=== PATIENT | male | born 1965 | race African-American/Black ===

== ENCOUNTER 2016-10-17 15:04 | Inpatient (IN) | payer OTHER ==
[2016-10-17 17:35] VITALS: BMI 35.2
--- NOTE | 2016-10-17 18:48 | HP ---
[id number] 4d 4-Moderate,w/Arms Extend Anxiety: 4-Mod. Anxious/Guarded Agitation: 4-Moderately Restless Paroxysmal Sweats: 1-Minimal Palms Moist Orientation: 1-Uncertain about Date Tacttile Disturbances: 0-None Auditory Disturbances: 0-None Visual Disturbances: 0-None Headache: 0-None Present CIWA-Ar Total Score: 15 Admission ROS S - HPI Chief Complaint: WITHDRAWAL SX Allergies/Adverse Reactions: Allergies Allergy/AdvReac Type Severity Reaction Status Date / Time shellfish derived Allergy Severe Difficulty Verified 10/17/16 18:01 Breathing No Known Drug Allergies Allergy Verified 10/17/16 18:01 formula with iron AdvReac Verified 10/17/16 18:50 [From Lactofree] infant formula, lactose-free AdvReac Verified 10/17/16 18:50 [From Lactofree] History of Present Illness: 51 YEARS OLD MALE WITH LONG HISTORY OF ALCOHOL DEPENDENCE, CHRONIC BACK PAIN, GERD, SEIZURE AND BIPOLAR II IS ADMITTED TO DETOX Exam Limitations: No Limitations - Ebola screening Have you traveled outside of the country in the last 21 days: No (N) Have you had contact with anyone from an Ebola affected area: No Have you been sick,other than usual withdrawal symptoms: No Do you have a fever: No - Review of Systems Constitutional: Chills, Changes in sleep, Weight Stable EENT: reports: Dental Problems (TEETH MISSING) Respiratory: reports: No Symptoms reported Cardiac: reports: No Symptoms Reported GI: reports: Nausea, Poor Fluid Intake, Indigestion, Abdominal cramping : reports: No Symptoms Reported Patient History - Patient Medical History Hx Anemia: No Hx Asthma: No Hx Chronic Obstructive Pulmonary Disease (COPD): No Hx Cancer: No Hx Cardiac Disorders: No Hx Congestive Heart Failure: No Hx Hypertension: No Hx Hypercholesterolemia: No Hx Pacemaker: No HX Cerebrovascular Accident: No Hx Seizures: Yes (Last seizure 2014.) Hx Dementia: No Hx Diabetes: Yes (Type II) Hx Gastrointestinal Disorders: Yes (acid reflux.) Hx Liver Disease: No Hx Genitourinary Disorders: No Hx Sexually Transmitted Disorders: No Hx Renal Disease (ESRD): No Hx Thyroid Disease: No Hx Human Immunodeficiency Virus (HIV): No Hx Hepatitis C: No Hx Depression: Yes Hx Suicide Attempt: No Hx Bipolar Disorder: No Hx Schizophrenia: No - Patient Surgical History Past Surgical History: Yes Hx Neurologic Surgery: No Hx Cataract Extraction: No Hx Cardiac Surgery: No Hx Lung Surgery: No Hx Breast Surgery: No Hx Breast Biopsy: No Hx Abdominal Surgery: No Hx Appendectomy: No Hx Cholecystectomy: No Hx Genitourinary Surgery: No Hx Orthopedic Surgery: Yes (R mandible fx) Anesthesia Reaction: No - PPD History Previous Implant?: Yes Documented Results: Negative w/o proof Implanted On Prior [facility] Admission?: No PPD to be Administered?: Yes - Smoking Cessation Smoking history: Current some day smoker Have you smoked in the past 12 months: No Aproximately how many cigarettes per day: 0 Cigars Per Day: 0 Hx Chewing Tobacco Use: No Initiated information on smoking cessation: No - Substance & Tx. History Hx Alcohol Use: Yes Hx Substance Use: Yes Substance Use Type: Alcohol Hx Substance Use Treatment: Yes - Substances Abused Alcohol Route: Oral Frequency: Daily Amount used: 2 PINTS VODKA Age of first use: 18 Date of Last Use: 10/17/16 Cocaine Route: Smoking Frequency: 1-2 times per week Amount used: $20 Age of first use: 30 Date of Last Use: 10/15/16 Family Disease History - Family Disease History Family Disease History: Heart Disease: Mother (), Other: Father (LIVER ) Admission Physical Exam S - Vital Signs Vital Signs: Vital Signs - 24 hr 10/17/16 17:29 Temperature 98.6 F Pulse Rate 95 H Respiratory 20 Rate Blood Pressure 122/81 - Physical General Appearance: Yes: Appropriately Dressed, Mild Distress, Obese, Tremorous , Irritable, Sweating, Anxious HEENTM: Yes: Hearing grossly Normal, Normal ENT Inspection, Normocephalic, Normal Voice Respiratory: Yes: Chest Non-Tender, Lungs Clear, Normal Breath Sounds, No Respiratory Distress, No Accessory Muscle Use Neck: Yes: Supple, Trachea in good position Breast: Yes: Breasts Symetrical Cardiology: Yes: Regular Rhythm, S1, S2, Tachycardia Abdominal: Yes: Non Tender, Soft Genitourinary: Yes: Within Normal Limits Back: Yes: Normal Inspection Musculoskeletal: Yes: full range of Motion, Gait Steady, Back pain, Muscle Pain (RIGHT KNEE) Extremities: Yes: Normal Range of Motion, Non-Tender, Tremors Neurological: Yes: Alert, Motor Strength 5/5, Normal Response, Depressed Affect Integumentary: Yes: Warm Lymphatic: Yes: Within Normal Limits - Diagnostic (1) Alcohol dependence with uncomplicated withdrawal Current Visit: Yes Status: Acute (2) Chronic back pain Current Visit: Yes Status: Chronic Qualifiers: Back pain location: low back pain Back pain laterality: bilateral Sciatica presence: without sciatica Qualified Code(s): M54.5 - Low back pain; G89.29 - Other chronic pain (3) GERD (gastroesophageal reflux disease) Current Visit: Yes Status: Chronic Qualifiers: Esophagitis presence: without esophagitis Qualified Code(s): K21.9 - Gastro-esophageal reflux disease without esophagitis (4) Injury of left middle finger Current Visit: Yes Status: Chronic Qualifiers: Encounter type: sequela Qualified Code(s): S69.92XS - Unspecified injury of left wrist, hand and finger(s), sequela (5) Diabetes mellitus type II, controlled Current Visit: Yes Status: Chronic Qualifiers: Diabetes mellitus complication status: without complication Diabetes mellitus buttermaker continuous churn insulin use: without buttermaker continuous churn use Qualified Code(s): E11.9 - Type 2 diabetes mellitus without complications (6) 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
[2016-10-17] MEDS ORDERED: MAGNESIUM CITRATE 300 ML BOTTLE PO PRN (18:57)
[2016-10-17] MEDS ORDERED: ACETAMINOPHEN 325 MG TABLET (FP) PO PRN (18:57)
[2016-10-17] MEDS ORDERED: chlordiazePOXIDE HCL 25 MG CAPSULE PO PRN (18:57)
[2016-10-17] MEDS ORDERED: LOPERAMIDE HCL 2 MG CAPSULE PO PRN (18:57)
[2016-10-17] MEDS ORDERED: P-EPHED 60MG/TRIPROLIDI 2.5MG TABLET PO PRN (18:57)
[2016-10-17] MEDS ORDERED: diphenhydrAMINE HCL 50 MG CAPSULE PO PRN (18:57)
[2016-10-17] MEDS ORDERED: MENTHOL/PHENOL 1 EACH UD MM PRN (18:57)
[2016-10-17] MEDS ORDERED: MAG HYDROX/AL HYDROX/SIMETH 30 ML UNIT-DOSE CUP PO PRN (18:57)
[2016-10-17] MEDS ORDERED: guaiFENesin/D-METHORPHAN HB 10 ML UNIT-DOSE CUPS PO PRN (18:57)
[2016-10-17] MEDS ORDERED: MAGNESIUM HYDROX 2400MG/30ML ORAL SUSPENSION 30 ML CUP PO PRN (18:57)
[2016-10-17] MEDS: THIAMINE HCL 100 MG TABLET (FP) PO SCH (22:44)
[2016-10-17] MEDS: RANITIDINE HCL 150 MG TABLET (FP) PO SCH (22:44)
[2016-10-17] MEDS: chlordiazePOXIDE HCL 25 MG CAPSULE PO SCH (22:44)
[2016-10-18] MEDS: chlordiazePOXIDE HCL 25 MG CAPSULE PO SCH ×4 (05:42→22:56)
[2016-10-18] MEDS: metFORMIN HCL 500 MG TABLET (FP) PO SCH ×2 (07:50→17:49)
[2016-10-18] MEDS: CYCLOBENZAPRINE HCL 10 MG TABLET (FP) PO PRN ×2 (08:07→22:56)
[2016-10-18] MEDS ORDERED: LIDOCAINE 5% TOPICAL PATCH TP ONE (08:59)
--- NOTE | 2016-10-18 09:32 | PN ---
S CIWA - CIWA Score Nausea/Vomitin Muscle Tremors: 3 Anxiety: 3 Agitation: 4-Moderately Restless Paroxysmal Sweats: 3 Orientation: 0-Oriented Tacttile Disturbances: 2-Mild Itch/Numbness/Burn Auditory Disturbances: 0-None Visual Disturbances: 0-None Headache: 0-None Present CIWA-Ar Total Score: 17 BHS Progress Note (SOAP) Subjective: interupted sleep, sweats, shakes, lbp, wants hsi pysch meds Objective: 10/18/16 09:28 Vital Signs Temperature 97.2 F L 10/18/16 06:00 Pulse Rate 91 H 10/18/16 06:00 Respiratory Rate 18 10/18/16 06:00 Blood Pressure 121/81 10/18/16 06:00 O2 Sat by Pulse Oximetry (%) Laboratory Tests 10/18/16 05:49 POC Glucometer 119 pending labs pt aox3 in nad ambulating , irritable Assessment: 10/18/16 09:30 withdrawal sx's anxious about pysch meds dm lbp Plan: cont detox increase fluids lidocaine patch/d flexeril 10mg tid/prn pysch eval. daily bgms
[2016-10-18 09:58] LABS: URINE APPEARANCE CLEAR; URINE BILIRUBIN NEGATIVE (NEGATIVE); URINE BLOOD NEGATIVE (NEGATIVE); URINE COLOR LTYELLOW; URINE GLUCOSE (UA) NEGATIVE (NEGATIVE); URINE KETONE NEGATIVE (NEGATIVE); URINE LEUK ESTERASE NEGATIVE (NEGATIVE); URINE NITRITE NEGATIVE (NEGATIVE); URINE PROTEIN NEGATIVE (NEGATIVE); URINE UROBILINOGEN NEGATIVE E.U./dl (0.2-1.0)
[2016-10-18 10:09] LABS: MCH 29.6 pg (25.7-33.7); MCHC 33.8 g/dl (32.0-35.9); MEAN CELL VOLUME 87.5 fl (80-96); MEAN PLT VOLUME 7.3 fl (7.5-11.1); PLATELET COUNT 259 K/MM3 (134-434); RDW 14.7 % (11.9-15.9); WHITE BLOOD COUNT 6.7 K/mm3 (4.0-10.0)
[2016-10-18 10:33] LABS: ALBUMIN 3.6 g/dl (3.4-5.0); ALK PHOS 50 U/L (45-117); ANION GAP 8 (8-16); BILIRUBIN,TOTAL 0.3 mg/dL (0.2-1.0); CALCIUM 8.7 mg/dL (8.5-10.1); CO2 27 mmol/L (21-32); COCKROFT - GAULT 135.04; CREATININE 0.9 mg/dL (0.7-1.3); GLUCOSE,RANDOM 99 mg/dL (74-106); SGOT/AST 19 U/L (15-37); SGPT/ALT 38 U/L (12-78); TOT PROT 6.5 g/dl (6.4-8.2)
--- NOTE | 2016-10-18 10:47 | CONSULT ---
[facility] Psychiatric Consult - Data Date of interview: 10/18/16 Admission source: [facility] Identifying data: Readmission to [facility] for this 51 y/o AA male seeking detox treatment for alcohol and cocaine dependence.Patient is single,a father of one,domiciled,unemployed and supported on SSI benefits. Substance Abuse History: - Smoking Cessation. Smoking history: Current some day smoker. Have you smoked in the past 12 months: No. Aproximately how many cigarettes per day: 0. Cigars Per Day: 0. Hx Chewing Tobacco Use: No. Initiated information on smoking cessation: No. - Substance & Tx. History. Hx Alcohol Use: Yes. Hx Substance Use: Yes. Substance Use Type: Alcohol. Hx Substance Use Treatment: Yes. - Substances Abused. Alcohol. Route: Oral. Frequency: Daily. Amount used: 2 PINTS VODKA. Age of first use: 18. Date of Last Use: 10/17/16. Cocaine. Route: Smoking. Frequency: 1-2 times per week. Amount used: $20. Age of first use: 30. Date of Last Use: 10/15/16. Confirmed by patient. Medical History: History of seizure disorder (on dilantin),arthritis,GERD and diabetes mellitus. Psychiatric History: History of three psychiatric hospitalizations ([facility]).Diagnosed with Bipolar Disorder,MDD and Anxiety Disorder (self-report).Prescribed seroquel 300 mg/am + 400 mg/hs and prozac 40 mg/day (scripts by Dr Parsons are brought by patient/dated ).Mr Mars gets his psychiatric OPD care on site at his [facility] residence ( [place] [facility]) in [place], [place].Gets monthly visits by his paychiatrist,Dr Delvin Munoz.Affiliated with [facility].Patient was allowed to use own medication (seroquel 400 mg) last night at [facility].Denies history of suicide attempts. Physical/Sexual Abuse/Trauma History: Patient denies. Additional Comment: Urine Drug Screen Results: BAR-Barbiturates, TCA-Tricyclic Antidepressant.Noted. Mental Status Exam - Mental Status Exam Alert and Oriented to: Time, Place, Person Cognitive Function: Good Patient Appearance: Well Groomed Mood: Anxious, Apprehensive Affect: Appropriate, Normal Range Patient Behavior: Appropriate, Cooperative Speech Pattern: Clear Voice Loudness: Normal Thought Process: Goal Oriented Thought Disorder: Not Present Hallucinations: Denies Suicidal Ideation: Denies Homicidal Ideation: Denies Insight/Judgement: Fair Sleep: Poorly, Difficulty falling asleep Appetite: Good Muscle strength/Tone: Normal Gait/Station: Normal Psychiatric Findings - Problem List ([place] 1, 2,3) (1) Alcohol dependence with uncomplicated withdrawal Current Visit: Yes Status: Acute (2) Cocaine dependence Current Visit: Yes Status: Acute (3) Nicotine dependence Current Visit: Yes Status: Acute (4) Bipolar disorder Current Visit: Yes Status: Chronic (5) Chronic back pain Current Visit: Yes Status: Chronic Qualifiers: Back pain location: low back pain Back pain laterality: bilateral Sciatica presence: without sciatica Qualified Code(s): M54.5 - Low back pain; G89.29 - Other chronic pain (6) Diabetes mellitus type II, controlled Current Visit: Yes Status: Chronic Qualifiers: Diabetes mellitus complication status: without complication Diabetes mellitus longterm insulin use: without terminal gauger use Qualified Code(s): E11.9 - Type 2 diabetes mellitus without complications (7) GERD (gastroesophageal reflux disease) Current Visit: Yes Status: Chronic Qualifiers: Esophagitis presence: without esophagitis Qualified Code(s): K21.9 - Gastro-esophageal reflux disease without esophagitis (8) Injury of left middle finger Current Visit: Yes Status: Chronic Qualifiers: Encounter type: sequela Qualified Code(s): S69.92XS - Unspecified injury of left wrist, hand and finger(s), sequela (9) Seizure after head injury Current Visit: Yes Status: Chronic (10) Insomnia Current Visit: Yes Status: Acute - Initial Treatment Plan Initial Treatment Plan: Psychoeducation.Detoxification.Medications :seroquel 300 mg/am + 300 mg/hs and prozac 40 mg po daily.Ordered.Will titrate to 400 mg/ hs tomorrow if no oversedation/unsteady gait.Side effects/benefits discussed with patient.He agrees with this careplan.Observation.Seizures precautions.No scripts needed at discharge.
[2016-10-18] MEDS ORDERED: QUEtiapine FUMARATE 300 MG TABLET PO SCH ×2 (11:00→22:00)
[2016-10-18] MEDS: PRENATAL VITAMINS W/ FOLIC ACID TABLET (FP) PO SCH (11:10)
[2016-10-18] MEDS: FLUoxetine HCL 20 MG CAPSULE (FP) PO SCH (11:11)
[2016-10-18] MEDS: RANITIDINE HCL 150 MG TABLET (FP) PO SCH ×2 (11:11→22:56)
[2016-10-18] MEDS: PHENYTOIN NA EXTENDED 100 MG CAPSULE (FP) PO SCH (11:11)
[2016-10-18] MEDS: NAPROXEN 500 MG TABLET (FP) PO PRN (11:12)
[2016-10-18 11:16] LABS: HIV 1 & 2 AB NEGATIVE; HIV 1 AGp24 NEGATIVE
[2016-10-18] MEDS ORDERED: QUEtiapine FUMARATE 400 MG TABLET PO SCH (22:00)
[2016-10-18] MEDS: THIAMINE HCL 100 MG TABLET (FP) PO SCH (22:56)
--- NOTE | 2016-10-18 23:07 | EKG ---
Test Reason : Blood Pressure : / mmHG Vent. Rate : 089 BPM Atrial Rate : 089 BPM P-R Int : 166 ms QRS Dur : 112 ms QT Int : 374 ms P-R-T Axes : 038 052 -01 degrees QTc Int : 455 ms NORMAL SINUS RHYTHM NORMAL ECG NO PREVIOUS ECGS AVAILABLE Confirmed by NORI APARICIO MD ([id number]) on 10/18/2016 11:07:08 PM Referred By: Carl Brown Confirmed By:NORI APARICIO MD
[2016-10-19] MEDS: NAPROXEN 500 MG TABLET (FP) PO PRN ×2 (00:59→16:41)
[2016-10-19] MEDS: chlordiazePOXIDE HCL 25 MG CAPSULE PO SCH ×3 (05:12→16:39)
[2016-10-19] MEDS: metFORMIN HCL 500 MG TABLET (FP) PO SCH ×2 (08:17→16:39)
[2016-10-19] MEDS ORDERED: QUEtiapine FUMARATE 400 MG TABLET PO SCH (09:06)
--- NOTE | 2016-10-19 10:09 | PN ---
Psychiatric Progress Note Vital Signs: Vital Signs Period Temp Pulse Resp BP Sys/Ortega Pulse Ox Last 24 Hr 97.7 F-98.2 F 79-101 18-20 121-136/69-89 Date of Session: 10/19/16 Chief Complaint:: Insomnia, agitation HPI: Patient reprots taking prior to asdmission: Seroquel 300mg po qd, 400mg po qhs. Reports insomnia and agitation, asking to restart his preadmission dosage of Seroquel Current Medications: Active Medications Generic Name Dose Route Start Last Admin Trade Name Freq PRN Reason Stop Dose Admin Acetaminophen 650 mg 10/17/16 18:57 Tylenol - PO Q4H PRN FEVER OR PAIN Al Hydroxide/Mg Hydroxide 30 ml 10/17/16 18:57 Mylanta Oral Suspension - PO Q6H PRN DYSPEPSIA Chlordiazepoxide HCl 10 mg 10/20/16 23:00 Librium - PO 10/21/16 17:01 [id number] RAUDEL Chlordiazepoxide HCl 25 mg 10/17/16 18:57 Librium - PO 10/20/16 18:56 Q4H PRN WITHDRAWAL(CONT SUBST) Chlordiazepoxide HCl 25 mg 10/18/16 23:00 10/19/16 05:12 Librium - PO 10/19/16 17:01 25 mg [id number] RAUDEL Administration Chlordiazepoxide HCl 15 mg 10/19/16 23:00 Librium - PO 10/20/16 17:01 [id number] RAUDEL Cyclobenzaprine HCl 10 mg 10/17/16 18:59 10/18/16 22:56 Flexeril - PO 10 mg TID PRN Administration MUSCLE SPASMS Diphenhydramine HCl 50 mg 10/17/16 18:57 10/17/16 22:44 Benadryl - PO 50 mg HSMR1 PRN Administration INSOMNIA Eucalyptus/Menthol/Phenol/Sorbitol 1 each 10/17/16 18:57 Cepastat Lozenge - MM Q4H PRN SORE THROAT Fluoxetine HCl 40 mg 10/18/16 11:00 10/18/16 11:11 Prozac - PO 40 mg DAILY RAUDEL Administration Guaifenesin 10 ml 10/17/16 18:57 Robitussin Dm - PO Q6H PRN COUGH Hydroxyzine Pamoate 50 mg 10/17/16 18:57 Vistaril - PO Q4H PRN AGITATION Loperamide HCl 4 mg 10/17/16 18:57 Imodium - PO Q6H PRN DIARRHEA Magnesium Citrate 300 ml 10/17/16 18:57 Citroma - PO Q48H PRN CONSTIPATION Magnesium Hydroxide 30 ml 10/17/16 18:57 Milk Of Magnesia - PO DAILY PRN CONSTIPATION Metformin HCl 500 mg 10/18/16 07:00 10/19/16 08:17 Glucophage - PO 500 mg BID@0700,1630 RAUDEL Administration Naproxen 500 mg 10/17/16 19:00 10/19/16 00:59 Naprosyn - PO 500 mg BID PRN Administration BACK PAIN Phenytoin Sodium 300 mg 10/18/16 10:00 10/18/16 11:11 Dilantin - PO 300 mg DAILY RAUDEL Administration Multivit/Folic Acid/Iron 1 tab 10/18/16 10:00 10/18/16 11:10 Vitamins (Sjr) - PO 1 tab DAILY RAUDEL Administration Pseudoephedrine/Triprolidine 1 combo 10/17/16 18:57 Actifed - PO TID PRN NASAL CONGESTION Quetiapine Fumarate 300 mg 10/18/16 22:00 10/18/16 22:56 Seroquel - PO 300 mg HS RAUDEL Administration Quetiapine Fumarate 400 mg 10/19/16 09:06 Seroquel - PO DAILY RAUDEL Ranitidine HCl 150 mg 10/17/16 22:00 10/18/16 22:56 Zantac - PO 150 mg BID RAUDEL Administration Thiamine HCl 100 mg 10/17/16 22:00 10/18/16 22:56 Vitamin B1 - PO 100 mg HS RAUDEL Administration Medication(s) Change(s): Seroquel 300mg poqd, 400mg po qhs Mental Status Exam - Mental Status Exam Alert and Oriented to: Person Cognitive Function: Fair Patient Appearance: Unkempt Mood: Nervous, Anxious Affect: Mood Congruent, Constricted Patient Behavior: Suspicious, Cooperative Speech Pattern: Appropriate Voice Loudness: Mildly Soft/Quiet Thought Process: Circumstantial Thought Disorder: Being Controlled Hallucinations: Denies Suicidal Ideation: Denies Homicidal Ideation: Denies Insight/Judgement: Fair Sleep: Difficulty falling asleep Appetite: Weight gain Muscle strength/Tone: Mild Hypertonicity Gait/Station: Normal Additional Comments: Seroquel 300mg poqd. 400mg po qhs Psychiatric Treatment Plan - Problem List (1) Alcohol dependence with uncomplicated withdrawal Current Visit: Yes (2) Cocaine dependence Current Visit: Yes (3) Bipolar disorder Current Visit: Yes (4) Injury of left middle finger Current Visit: Yes Qualifiers: Encounter type: sequela Qualified Code(s): S69.92XS - Unspecified injury of left wrist, hand and finger(s), sequela (5) Seizure after head injury Current Visit: Yes Initial treatment plan: Seroquel 300mg poqd. 400mg po qhs
[2016-10-19] MEDS: PRENATAL VITAMINS W/ FOLIC ACID TABLET (FP) PO SCH (10:13)
[2016-10-19] MEDS: CYCLOBENZAPRINE HCL 10 MG TABLET (FP) PO PRN ×2 (10:14→23:00)
[2016-10-19] MEDS: FLUoxetine HCL 20 MG CAPSULE (FP) PO SCH (10:14)
[2016-10-19] MEDS: PHENYTOIN NA EXTENDED 100 MG CAPSULE (FP) PO SCH (10:14)
[2016-10-19] MEDS: RANITIDINE HCL 150 MG TABLET (FP) PO SCH ×2 (10:14→23:00)
--- NOTE | 2016-10-19 10:25 | PN ---
S CIWA - CIWA Score Nausea/Vomitin-No Nausea/No Vomiting Muscle Tremors: 4-Moderate,w/Arms Extend Anxiety: 3 Agitation: 4-Moderately Restless Paroxysmal Sweats: 3 Orientation: 0-Oriented Tacttile Disturbances: 0-None Auditory Disturbances: 0-None Visual Disturbances: 0-None Headache: 1-Very Mild CIWA-Ar Total Score: 15 BHS Progress Note (SOAP) Subjective: sweats shakes interrupted sleep anxiety Objective: 10/19/16 10:25 Vital Signs Temperature 97.7 F 10/19/16 09:51 Pulse Rate 93 H 10/19/16 09:51 Respiratory Rate 18 10/19/16 09:51 Blood Pressure 127/89 10/19/16 09:51 O2 Sat by Pulse Oximetry (%) Laboratory Tests 10/17/16 10/17/16 10/18/16 07:00 18:12 05:49 WBC RBC Hgb Hct MCV MCHC RDW Plt Count MPV Sodium Potassium Chloride Carbon Dioxide Anion Gap BUN Creatinine Creat Clearance w eGFR POC Glucometer 126 119 Random Glucose Calcium Total Bilirubin AST ALT Alkaline Phosphatase Total Protein Albumin Urine Color Urine Appearance Urine pH Ur Specific [place] Urine Protein Urine Glucose (UA) Urine Ketones Urine Blood Urine Nitrite Urine Bilirubin Urine Urobilinogen Ur Leukocyte Esterase Phenytoin RPR Titer Hepatitis C Antibody <0.1 HIV 1&2 Antibody Screen HIV P24 Antigen 10/18/16 10/18/16 10/18/16 07:00 07:00 07:00 WBC 6.7 RBC 4.41 Hgb 13.0 Hct 38.6 MCV 87.5 MCHC 33.8 RDW 14.7 Plt Count 259 MPV 7.3 L Sodium 142 Potassium 4.3 Chloride 107 Carbon Dioxide 27 Anion Gap 8 BUN 12 Creatinine 0.9 Creat Clearance w eGFR > 60 POC Glucometer Random Glucose 99 Calcium 8.7 Total Bilirubin 0.3 AST 19 ALT 38 Alkaline Phosphatase 50 Total Protein 6.5 Albumin 3.6 Urine Color Urine Appearance Urine pH Ur Specific [place] Urine Protein Urine Glucose (UA) Urine Ketones Urine Blood Urine Nitrite Urine Bilirubin Urine Urobilinogen Ur Leukocyte Esterase Phenytoin RPR Titer Hepatitis C Antibody HIV 1&2 Antibody Screen Negative HIV P24 Antigen Negative 10/18/16 10/18/16 10/18/16 07:00 07:00 07:00 WBC RBC Hgb Hct MCV MCHC RDW Plt Count MPV Sodium Potassium Chloride Carbon Dioxide Anion Gap BUN Creatinine Creat Clearance w eGFR POC Glucometer Random Glucose Calcium Total Bilirubin AST ALT Alkaline Phosphatase Total Protein Albumin Urine Color Ltyellow Urine Appearance Clear Urine pH 5.0 Ur Specific [place] 1.027 Urine Protein Negative Urine Glucose (UA) Negative Urine Ketones Negative Urine Blood Negative Urine Nitrite Negative Urine Bilirubin Negative Urine Urobilinogen Negative Ur Leukocyte Esterase Negative Phenytoin 4.7 L RPR Titer Nonreactive Hepatitis C Antibody HIV 1&2 Antibody Screen HIV P24 Antigen 10/18/16 10/19/16 16:47 06:54 WBC RBC Hgb Hct MCV MCHC RDW Plt Count MPV Sodium Potassium Chloride Carbon Dioxide Anion Gap BUN Creatinine Creat Clearance w eGFR POC Glucometer 140 97 Random Glucose Calcium Total Bilirubin AST ALT Alkaline Phosphatase Total Protein Albumin Urine Color Urine Appearance Urine pH Ur Specific [place] Urine Protein Urine Glucose (UA) Urine Ketones Urine Blood Urine Nitrite Urine Bilirubin Urine Urobilinogen Ur Leukocyte Esterase Phenytoin RPR Titer Hepatitis C Antibody HIV 1&2 Antibody Screen HIV P24 Antigen awake/alert ambulating no acute distress Assessment: 10/19/16 10:28 withdrawal sx Plan: continue detox increase fluids
[2016-10-19] MEDS: QUEtiapine FUMARATE 300 MG TABLET PO SCH (11:01)
[2016-10-19] MEDS ORDERED: LIDOCAINE VISCOUS 2% ORAL/TOP 20 ML UNIT-DOSE CUP MM ONE (21:07)
[2016-10-19] MEDS: chlordiazePOXIDE 5 MG CAPSULE PO SCH (23:01)
[2016-10-19] MEDS: QUEtiapine FUMARATE 400 MG TABLET PO SCH (23:01)
[2016-10-19] MEDS: THIAMINE HCL 100 MG TABLET (FP) PO SCH (23:01)
[2016-10-20] MEDS: chlordiazePOXIDE 5 MG CAPSULE PO SCH ×3 (05:52→17:30)
[2016-10-20] MEDS: metFORMIN HCL 500 MG TABLET (FP) PO SCH ×2 (07:55→17:30)
--- NOTE | 2016-10-20 09:02 | PN ---
BHS Progress Note (SOAP) Subjective: interrupted sleep, sweats, tooth ache rt upper molar Objective: 10/20/16 09:01 Vital Signs Temperature 96.8 F L 10/20/16 06:00 Pulse Rate 90 10/20/16 06:00 Respiratory Rate 20 10/20/16 06:00 Blood Pressure 128/75 10/20/16 06:00 O2 Sat by Pulse Oximetry (%) Laboratory Tests 10/17/16 10/17/16 10/18/16 07:00 18:12 05:49 WBC RBC Hgb Hct MCV MCHC RDW Plt Count MPV Sodium Potassium Chloride Carbon Dioxide Anion Gap BUN Creatinine Creat Clearance w eGFR POC Glucometer 126 119 Random Glucose Calcium Total Bilirubin AST ALT Alkaline Phosphatase Total Protein Albumin Urine Color Urine Appearance Urine pH Ur Specific [place] Urine Protein Urine Glucose (UA) Urine Ketones Urine Blood Urine Nitrite Urine Bilirubin Urine Urobilinogen Ur Leukocyte Esterase Phenytoin RPR Titer Hepatitis C Antibody <0.1 HIV 1&2 Antibody Screen HIV P24 Antigen 10/18/16 10/18/16 10/18/16 07:00 07:00 07:00 WBC 6.7 RBC 4.41 Hgb 13.0 Hct 38.6 MCV 87.5 MCHC 33.8 RDW 14.7 Plt Count 259 MPV 7.3 L Sodium 142 Potassium 4.3 Chloride 107 Carbon Dioxide 27 Anion Gap 8 BUN 12 Creatinine 0.9 Creat Clearance w eGFR > 60 POC Glucometer Random Glucose 99 Calcium 8.7 Total Bilirubin 0.3 AST 19 ALT 38 Alkaline Phosphatase 50 Total Protein 6.5 Albumin 3.6 Urine Color Urine Appearance Urine pH Ur Specific [place] Urine Protein Urine Glucose (UA) Urine Ketones Urine Blood Urine Nitrite Urine Bilirubin Urine Urobilinogen Ur Leukocyte Esterase Phenytoin RPR Titer Hepatitis C Antibody HIV 1&2 Antibody Screen Negative HIV P24 Antigen Negative 10/18/16 10/18/16 10/18/16 07:00 07:00 07:00 WBC RBC Hgb Hct MCV MCHC RDW Plt Count MPV Sodium Potassium Chloride Carbon Dioxide Anion Gap BUN Creatinine Creat Clearance w eGFR POC Glucometer Random Glucose Calcium Total Bilirubin AST ALT Alkaline Phosphatase Total Protein Albumin Urine Color Ltyellow Urine Appearance Clear Urine pH 5.0 Ur Specific [place] 1.027 Urine Protein Negative Urine Glucose (UA) Negative Urine Ketones Negative Urine Blood Negative Urine Nitrite Negative Urine Bilirubin Negative Urine Urobilinogen Negative Ur Leukocyte Esterase Negative Phenytoin 4.7 L RPR Titer Nonreactive Hepatitis C Antibody HIV 1&2 Antibody Screen HIV P24 Antigen 10/18/16 10/19/16 10/19/16 16:47 06:54 16:34 WBC RBC Hgb Hct MCV MCHC RDW Plt Count MPV Sodium Potassium Chloride Carbon Dioxide Anion Gap BUN Creatinine Creat Clearance w eGFR POC Glucometer 140 97 100 Random Glucose Calcium Total Bilirubin AST ALT Alkaline Phosphatase Total Protein Albumin Urine Color Urine Appearance Urine pH Ur Specific [place] Urine Protein Urine Glucose (UA) Urine Ketones Urine Blood Urine Nitrite Urine Bilirubin Urine Urobilinogen Ur Leukocyte Esterase Phenytoin RPR Titer Hepatitis C Antibody HIV 1&2 Antibody Screen HIV P24 Antigen 10/20/16 06:02 WBC RBC Hgb Hct MCV MCHC RDW Plt Count MPV Sodium Potassium Chloride Carbon Dioxide Anion Gap BUN Creatinine Creat Clearance w eGFR POC Glucometer 126 Random Glucose Calcium Total Bilirubin AST ALT Alkaline Phosphatase Total Protein Albumin Urine Color Urine Appearance Urine pH Ur Specific [place] Urine Protein Urine Glucose (UA) Urine Ketones Urine Blood Urine Nitrite Urine Bilirubin Urine Urobilinogen Ur Leukocyte Esterase Phenytoin RPR Titer Hepatitis C Antibody HIV 1&2 Antibody Screen HIV P24 Antigen pt aox3 in nad ambulating 10/20/16 09:10 Assessment: 10/20/16 09:01 withdrawal sx's toothache sub therapeutic dilantin level 10/20/16 09:10 Plan: cont detox increase fluids dilantin 500mg now d/c in am
[2016-10-20] MEDS ORDERED: PHENYTOIN NA EXTENDED 100 MG CAPSULE (FP) PO ONE (09:03)
[2016-10-20] MEDS: QUEtiapine FUMARATE 300 MG TABLET PO SCH (09:56)
[2016-10-20] MEDS: hydrOXYzine PAMOATE 50 MG CAPSULE (FP) PO PRN (09:56)
[2016-10-20] MEDS: CYCLOBENZAPRINE HCL 10 MG TABLET (FP) PO PRN ×2 (09:56→22:47)
[2016-10-20] MEDS: PRENATAL VITAMINS W/ FOLIC ACID TABLET (FP) PO SCH (09:56)
[2016-10-20] MEDS: RANITIDINE HCL 150 MG TABLET (FP) PO SCH ×2 (09:57→22:47)
[2016-10-20] MEDS: FLUoxetine HCL 20 MG CAPSULE (FP) PO SCH (09:57)
[2016-10-20] MEDS: LIDOCAINE VISCOUS 2% ORAL/TOP 20 ML UNIT-DOSE CUP MM PRN ×2 (10:00→22:51)
[2016-10-20] MEDS: PHENYTOIN NA EXTENDED 100 MG CAPSULE (FP) PO SCH (10:00)
[2016-10-20] MEDS: NAPROXEN 500 MG TABLET (FP) PO PRN (17:31)
[2016-10-20] MEDS: QUEtiapine FUMARATE 400 MG TABLET PO SCH (22:47)
[2016-10-20] MEDS: chlordiazePOXIDE HCL 10 MG CAPSULE PO SCH (22:47)
[2016-10-20] MEDS: THIAMINE HCL 100 MG TABLET (FP) PO SCH (22:47)
[2016-10-21] MEDS: chlordiazePOXIDE HCL 10 MG CAPSULE PO SCH ×2 (05:10→11:41)
[2016-10-21] MEDS: CYCLOBENZAPRINE HCL 10 MG TABLET (FP) PO PRN ×2 (05:12→10:31)
[2016-10-21] MEDS: NAPROXEN 500 MG TABLET (FP) PO PRN (05:13)
[2016-10-21] MEDS: metFORMIN HCL 500 MG TABLET (FP) PO SCH (07:55)
--- NOTE | 2016-10-21 08:39 | DS ---
[facility] Detox Discharge Summary Admission Date: 10/17/16 Discharge Date: 10/21/16 - History Present History: Alcohol Dependence, Cocaine Dependence - Physical Exam Results Vital Signs: Vital Signs Temperature 95.9 F L 10/21/16 06:40 Pulse Rate 99 H 10/21/16 06:40 Respiratory Rate 20 10/21/16 06:40 Blood Pressure 130/87 10/21/16 06:40 O2 Sat by Pulse Oximetry (%) - Treatment Hospital Course: Detox Protocol Followed, Detoxed Safely, Responded well, Discharged Condition Good, Rehab Referral Accepted - Medication Discharge Medications: Ambulatory Orders Cyclobenzaprine HCl [Flexeril 10 mg] 5 mg PO TID PRN 10/17/16 Fluoxetine HCl [Prozac -] 40 mg PO DAILY 10/17/16 Lansoprazole [Prevacid -] 15 mg PO DAILY 10/17/16 Mv-Mn/FA/Vit K/Lycop/Lut/Coq10 [Daily Multivitamin Capsule] 1 each PO DAILY 07/05 Naproxen [Naprosyn -] 500 mg PO BID 10/17/16 Phenytoin Na Extended [Dilantin -] 300 mg PO DAILY 10/17/16 Quetiapine Fumarate [Seroquel -] 300 mg PO DAILY 10/17/16 Quetiapine Fumarate [Seroquel -] 400 mg PO HS 10/17/16 - Diagnosis (1) Alcohol dependence with uncomplicated withdrawal Current Visit: Yes Status: Chronic (2) Cocaine dependence Current Visit: Yes Status: Chronic Qualifiers: Substance use status: uncomplicated Qualified Code(s): F14.20 - Cocaine dependence, uncomplicated (3) Insomnia Current Visit: Yes Status: Chronic (4) Nicotine dependence Current Visit: Yes Status: Chronic Qualifiers: Nicotine product type: cigarettes Substance use status: uncomplicated Qualified Code(s): F17.210 - Nicotine dependence, cigarettes, uncomplicated (5) Bipolar disorder Current Visit: Yes Status: Chronic (6) Chronic back pain Current Visit: Yes Status: Chronic Qualifiers: Back pain location: low back pain Back pain laterality: bilateral Sciatica presence: without sciatica Qualified Code(s): M54.5 - Low back pain; G89.29 - Other chronic pain (7) Diabetes mellitus type II, controlled Current Visit: Yes Status: Chronic Qualifiers: Diabetes mellitus complication status: without complication Diabetes mellitus half-way insulin use: without half-way use Qualified Code(s): E11.9 - Type 2 diabetes mellitus without complications (8) GERD (gastroesophageal reflux disease) Current Visit: Yes Status: Chronic Qualifiers: Esophagitis presence: without esophagitis Qualified Code(s): K21.9 - Gastro-esophageal reflux disease without esophagitis (9) Injury of left middle finger Current Visit: Yes Status: Chronic Qualifiers: Encounter type: sequela Qualified Code(s): S69.92XS - Unspecified injury of left wrist, hand and finger(s), sequela (10) Seizure after head injury Current Visit: Yes Status: Chronic (11) Bipolar II disorder Current Visit: Yes Status: Suspected - AMA Did Patient Leave Against Medical Advice: No
[2016-10-21] MEDS: PHENYTOIN NA EXTENDED 100 MG CAPSULE (FP) PO SCH (10:31)
[2016-10-21] MEDS: RANITIDINE HCL 150 MG TABLET (FP) PO SCH (10:31)
[2016-10-21] MEDS: FLUoxetine HCL 20 MG CAPSULE (FP) PO SCH (10:31)
[2016-10-21] MEDS: QUEtiapine FUMARATE 300 MG TABLET PO SCH (10:31)
[2016-10-21] MEDS: PRENATAL VITAMINS W/ FOLIC ACID TABLET (FP) PO SCH (10:31)
[2016-10-21 10:47] VITALS: BP 128/60; PULSE 102; TEMP 98.1
[2016-10-21] MEDS: hydrOXYzine PAMOATE 50 MG CAPSULE (FP) PO PRN (14:07)
== END 2016-10-21 02:31 | disposition home or self-care (01) | DRG 774 ==
LOC: YASAS 15:04 → Y6N 19:36
PROVIDERS: ADMIT Internal Medicine Addiction Medicine; ATTEND Internal Medicine Addiction Medicine
PROC: HZ2ZZZZ Detoxification Services for Substance Abuse Treatment (ICD-10-PCS; principal; 2016-10-21)
DX: F10.230 Alcohol dependence with withdrawal, uncomplicated (principal); F14.20 Cocaine dependence, uncomplicated; F17.210 Nicotine dependence, cigarettes, uncomplicated; F31.81 Bipolar II disorder; G47.00 Insomnia, unspecified; E11.9 Type 2 diabetes mellitus without complications; Z79.84 Long term (current) use of oral hypoglycemic drugs; K21.9 Gastro-esophageal reflux disease without esophagitis; G40.909 Epilepsy, unspecified, not intractable, without status epilepticus; S69.92XS Unspecified injury of left wrist, hand and finger(s), sequela; T14.90 Injury, unspecified; X58.XXXS Exposure to other specified factors, sequela
CPT/HCPCS: 36415; 80053; 80185; 81003; 85027; 86593; 87389; 93005; 93010